=== PATIENT | male | born 1965 | race Caucasian/White ===

== ENCOUNTER 2016-12-24 08:00 | Outpatient (RCR) | payer OTHER ==
--- NOTE | 2016-10-22 08:54 | PT/OT/ST INITIAL EVALUATION ---
Department of Health and Human Services Form Approved Health Care Financing Administration OMB No. [id number] PLAN OF CARE/ASSESSMENT FOR OUTPATIENT REHABILITATION (Complete for Initial Claims Only) 1. PATIENT'S NAME Laith Walker 2. ACC # [id number] 3. [facility] [phone] 4. PROVIDER NO. [id number] 5. TYPE: PT 6. PRIOR HOSPITALIZATION NA 7. PRIMARY DX Left total knee arthroplasty 8. SECONDARY DX Left knee pain, left knee stiffness, difficulty walking and weakness. 9. ONSET DATE Surgery 10/13/2016 10. REFERRAL DATE 10/14/2016 11. SOC. DATE 10/18/2016 12. TIME OF EVAL 9:11 a.m. to 9:57 a.m. 12. REFERRING PHYSICIAN Dr. Adkins 13. CHARGES/UNITS PT evaluation low complexity 64131 Therapeutic exercise 76587, 1 unit Vasopneumatic device 83710, 1 unit 14. G CODES 15. PRIOR LEVEL OF FUNCTION; PERTINENT HISTORY (Prior therapy results, reason for referral.) S: Prior to therapy the patient consented to today's evaluation and treatment. The patient is a 51-year-old male referred to therapy by Dr. Adkins to address functional limitations following left total knee arthroplasty. Current Complaint/Mechanism of injury: The patient reports there was no specific injury leading to left knee replacement, it is from osteoarthritis. He was told that he had no joint space and his knee was locking up and states that he did not have a whole lot of bending and straightening of his left knee prior to surgery for the last 6 to 9 months. Currently the biggest complaint is that he can't get comfortable when sleeping. Functional performance/Prior level of function: The patient reports that prior to surgery he could do the things he needed to do with pain and he was limited in stairs. The Lower Extremity Functional Scale currently rates the patient as 2/80. 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 Therapy History: None noted. Pain level: The patient rates the current pain level as 7/10 now, and can get up to 10/10 at its worst and describes the pain as not being able to get comfortable. Obstacles to delivery of care: None noted. Aggravating factors: None noted because is he uncomfortable most of the time. Relieving factors: None. Diagnostic testing: None noted. Past medical history: Osteoarthritis, history of bone spurs just above the left knee joint when he was in high school, which was removed. Past surgical history: Includes left total knee arthroplasty. Current medications: Include hydrocodone and Xarelto. Social/health habits/leisure activities: Include liking to jet ski and water ski and being outside. Activity level: Listed as medium. Personal health rating: Overall health rating is listed as good. Patient's Goal: The patient's goal for physical therapy is to improve his mobility and flexibility. 16. INITIAL ASSESSMENT/SAFETY PRECAUTIONS/MEDICAL COMPLICATIONS (Level of function at start of care. Be specific, use objective measures, list problems.) O: APPEARANCE AND OBSERVATION: The patient presents to physical therapy with the diagnosis of left total knee arthroplasty. The patient has a swollen left lower extremity as compared to his right. His Aquacel bandage is intact. No significant amount of drainage noted through bandage. The patient has difficulty lifting his left lower extremity and with quad sets has minimal quad contraction. The patient is using a 4-wheeled walker with antalgic gait pattern. PALPATION: The patient was overall tender on the left lower extremity. SPECIAL TESTS: Negative bilateral lower extremity Homans. RANGE OF MOTION/FLEXIBILITY: Active range of motion of the left knee 140 degrees of flexion, lacking 8 degrees of extension. Right knee 42 degrees of flexion laying down, 47 degrees of flexion sitting. Lacking 15 degrees of extension lying down. STRENGTH: No formal manual muscle testing was due to surgery. Upon observation, the patient's left lower extremity would be 2-/5. TODAY'S TREATMENT: Included the initial evaluation followed by therapeutic exercise and vasopneumatic device. 17. INITIAL POC: (Specify procedures, modalities, short and assisted goals) A: The patient presents to physical therapy with the diagnosis of left total knee arthroplasty with functional limitations of left knee pain, left knee stiffness, difficulty walking and weakness. The patient would benefit from physical therapy in order to control the pain and swelling in order to restore range of motion and strengthening in order to return to his job duties as a production graphic designer at [employer], as well as being able to perform necessary activities around home with minimal deviation and to restore the proper mechanics for performing these activities with proper form. PROGNOSIS: The patient has a good prognosis for increased active range of motion with decreased pain and regular therapy attendance and compliance with prescribed home exercise program. CONTRAINDICATIONS, PRECAUTIONS AND OBSTACLES TO DELIVERY OF CARE: No contraindications, precautions, or obstacles are noted at this time. INFORMED CONSENT: The prognosis and goals were discussed with the patient, as well as the expected outcomes and possible risks. The patient agreed to undergo PT evaluation and further treatment. GOALS: 1. The patient is to have a decrease in pain of the left lower extremity and knee to less than or equal to 2/10 in 8 weeks in order to ambulate without deviation for return to work. 2. The patient is to have an increase in manual muscle testing of the left knee to 4+/5 in 8 weeks in order to be able to squat and go up and down stairs with minimal deviation. 3. The patient is to have an increase in active range of motion of the left knee to 120 degrees of flexion and lacking 5 degrees of extension in order to be able to get in and out of the car and go up and down stairs and get up and down from the floor without deviation for household activity and yard work. 4. The patient is to be independent with progressive home exercise program. P: Plan to treat this patient 2 to 3 times a week for 8 weeks to address functional limitations secondary to left total knee arthroplasty. Therapy to include modalities for pain and inflammation, manual therapy interventions, therapeutic exercise, active and passive range of motion, gait training, balance proprioceptive training, neural reeducation and patient education and prescription of progressive home exercise program as tolerable. 18. FREQUENCY 2 to 3 times a week 19. DURATION 8 weeks 20. FUNCTIONAL LEVEL (End of claim period) 21. PHYSICIAN SIGNATURE ? ON FILE OR ENTER HERE: 22. DATE: I certify the need for these services furnished under this plan of care and if for partial hospitalization. 23. CERTIFICATION FROM THROUGH FORM [id number]
== END 2016-12-27 09:04 | disposition home or self-care (01) ==
LOC: PT 08:00
PROVIDERS: ATTEND Orthopaedic Surgery
DX: Z47.1 Aftercare following joint replacement surgery (principal); Z96.651 Presence of right artificial knee joint